=== PATIENT | male | born 1985 | race American Indian/Alaskan Native ===

== ENCOUNTER 2017-06-14 17:25 | Emergency (ER) | payer MEDICAID, OTHER ==
[2017-06-14 17:25] VITALS: BMI 21.7
[2017-06-14 17:36] VITALS: BP 129/69; PULSE 66; RESP 16; TEMP 98.7; O2SAT 100
--- NOTE | 2017-06-14 17:58 | ED PDOC ---
HPI: Psych/Substance Abuse Time Seen by Provider: 06/14/17 17:44 Chief Complaint (Nursing): Anxiety Chief Complaint (Provider): abdominal pain History Per: Patient History/Exam Limitations: no limitations Onset/Duration Of Symptoms: Mins (prior to arrival) Current Symptoms Are (Timing): Still Present Additional Complaint(s): 31 year old male who presents to the emergency department with a complaint of anxiety from weening off of PCP use. Denied any auditory hallucination, depression, difficulty urinating, bloody urine, chest pain, fever, chills, suicidal or homicidal ideation. Patient also does not report abdominal pain although contrary to triage note. PMD: none provided Past Medical History Reviewed: Historical Data, Nursing Documentation, Vital Signs Vital Signs: Last Vital Signs Temp 98.7 F 06/14/17 17:33 Pulse 66 06/14/17 17:33 Resp 16 06/14/17 17:33 BP 129/69 06/14/17 17:33 Pulse Ox 100 06/14/17 17:33 - Medical History PMH: Anxiety, Post Traumatic Stress Disorder Denies: Diabetes, Hepatitis, HIV, HTN, Chronic Kidney Disease, Seizures, Sexually Transmitted Disease - Family History Family History: States: Unknown Family Hx - Social History Drugs: Other (PCP) - Immunization History Hx Tetanus Toxoid Vaccination: No Hx Influenza Vaccination: No Hx Pneumococcal Vaccination: No - Home Medications Home Medications: Ambulatory Orders Medication Instructions Recorded Multivit-Minerals/FA/Lycopene [One 1 each PO DAILY 07/05/16 Daily [employer] KlickThru Tablet] Fluticasone Propionate [Flonase] 1 actuation NS DAILY #1 bottle 01/30/17 Loratadine [Claritin] 10 mg PO DAILY #30 tab 01/30/17 Pseudoephedrine HCl [Sudafed] 30 mg PO Q8 #24 tablet 01/30/17 Famotidine [Pepcid] 20 mg PO DAILY #14 tab 02/02/17 - Allergies Allergies/Adverse Reactions: Allergies Allergy/AdvReac Type Severity Reaction Status Date / Time No Known Allergies Allergy Verified 06/14/17 17:32 Review of Systems ROS Statement: Except As Marked, All Systems Reviewed And Found Negative Constitutional: Negative for: Fever, Chills Cardiovascular: Negative for: Chest Pain Gastrointestinal: Negative for: Abdominal Pain Genitourinary Male: Negative for: Dysuria, Hematuria Psych: Positive for: Anxiety. Negative for: Depression, Suicidal ideation (or homicidal ideation), Other (audiotory hallucination) Physical Exam - Reviewed Nursing Documentation Reviewed: Yes Vital Signs Reviewed: Yes - Physical Exam Appears: Positive for: Non-toxic, No Acute Distress Cardiovascular/Chest: Positive for: Regular Rate, Rhythm, Chest Non Tender Respiratory: Positive for: Normal Breath Sounds. Negative for: Decreased Breath Sounds, Respiratory Distress Gastrointestinal/Abdominal: Positive for: Normal Exam, Soft. Negative for: Tenderness Extremity: Positive for: Normal ROM (upper/lower). 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 Offered ativan 0.5 mg PO, which he agreed to take. Patient seen and evaluated by PES and cleared for outpatient f/u which the patient agrees to. On re-evaluation, patient states that he feels better and wants to go home. Reports no abdominal pain and has no other complaints at this time. Advised to follow up with outpt psych referral provided in 1-2 days without fail. Return to the emergency room at any time for any new or worsening symptoms. Patient states he fully agrees with and understands discharge instructions. States that he agrees with the plan and disposition. Verbalized and repeated discharge instructions and plan. I have given the patient opportunity to ask any additional questions. Scribe Attestation: Documented by Maya Mcgrath, acting as a scribe for Latanya Smith PA-C. Provider Scribe Attestation: All medical record entries made by the Scribe were at my direction and personally dictated by me. I have reviewed the chart and agree that the record accurately reflects my personal performance of the history, physical exam, medical decision making, and the department course for this patient. I have also personally directed, reviewed, and agree with the discharge instructions and disposition. Disposition - Clinical Impression Clinical Impression: Anxiety, PCP abuse - Patient ED Disposition Is Patient to be Admitted: No Counseled Patient/Family Regarding: Diagnosis, Need For Followup - Disposition Disposition: Routine/Home Disposition Time: 18:07 Condition: STABLE Additional Instructions: Thank you for letting us take care of you today. You were treated for anxiety and PCP use. The emergency medical care you received today was directed at your acute symptoms. Follow up with psychiatric referral provided. Return to the Emergency Department if your symptoms worsen, do not improve, or if you have any other problems. Please call one of the physicians/clinics you have been referred to that are listed on the Patient Visit Information form that is included in your discharge packet. Bring any paperwork you were given at discharge with you along with any medications you are taking to your follow up visit. Our treatment cannot replace ongoing medical care by a primary care provider (PCP) outside of the emergency department. Thank you for allowing the [facility] team to be part of your care today. 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
== END 2017-06-14 18:40 | disposition home or self-care (01) ==
LOC: H.ER 17:25
DX: F41.9 Anxiety disorder, unspecified (principal); F43.10 Post-traumatic stress disorder, unspecified